=== PATIENT | male | born 1985 | race Caucasian/White ===

== ENCOUNTER 2018-07-24 10:16 | Emergency (ER) | payer BC, OTHER ==
[2018-07-24 10:53] VITALS: BP 130/87
--- NOTE | 2018-07-24 12:15 | ED Physician Documentation ---
PD HPI BACK PAIN - Stated complaint Stated Complaint: BACK PX - Chief complaint Chief Complaint: Back Pain - History obtained from History obtained from: Patient - History of Present Illness Timing - onset: How many days ago (couple) Timing - duration: Days Timing - details: Abrupt onset, Still present Location: Upper, Left (pain around shoulder girdle and trapezius area.) Quality: Pain, Spasm Associated symptoms: No: Fever, Weakness, Numbness Worsened by: Movement, Lifting Contributing factors: Lifting. No: Trauma Similar symptoms before: Has not had sx before Recently seen: Not recently seen Review of Systems Constitutional: denies: Fever, Chills, Myalgias Skin: denies: Rash, Lesions Neurologic: denies: Focal weakness, Numbness PD PAST MEDICAL HISTORY - Past Medical History Cardiovascular: None Respiratory: None Musculoskeletal: None - Present Medications Home Medications: Ambulatory Orders Medication Instructions Recorded Confirmed Hydrocodone/Acetaminophen [[place] 1 each PO Q6H PRN #20 tablet 07/24/18 5-325 Tablet] Methocarbamol [Robaxin] 500 mg PO Q6H PRN #30 tablet 07/24/18 - Allergies Allergies/Adverse Reactions: Allergies Allergy/AdvReac Type Severity Reaction Status Date / Time No Known Drug Allergies Allergy Verified 07/24/18 10:37 PD ED PE NORMAL - Vitals Vital signs reviewed: Yes - General General: Alert and oriented X 3, No acute distress, Well developed/nourished - Neck Neck: No bony TTP, Other (tender in left trapezius muscle side of neck to scapular area and posterior shoulder. No rash nor sores. ) - Neuro Neuro: No motor deficit, No sensory deficit Results - Vitals Vitals: Oxygen O2 Source Room air PD MEDICAL DECISION MAKING - ED course Complexity details: considered differential, d/w patient Departure - Departure Disposition: Home, Self Care Clinical Impression: Trapezius muscle strain Qualifiers: Encounter type: initial encounter Laterality: left Qualified Code(s): S46.812A - Strain of other muscles, fascia and tendons at shoulder and upper arm level, left arm, initial encounter Condition: Stable Record reviewed to determine appropriate education?: Yes Instructions: ED Spasm Back No Trauma Follow-Up: DORI MALONE [Primary Care Provider] - Prescriptions: Hydrocodone/Acetaminophen [[place] 5-325 Tablet] 1 each PO Q6H PRN #20 tablet PRN Reason: Pain Methocarbamol [Robaxin] 500 mg PO Q6H PRN #30 tablet PRN Reason: Spasms Comments: Ibuprofen 3 times daily. Robaxin for spasms. [place] for pain. Sling and no use left arm for few days. Follow up PMD in 2 days. Forms: Activity restrictions Discharge Date/Time: 07/24/18 13:32
[2018-07-24] MEDS ORDERED: diazePAM 5 MG TABLET PO STA (12:42)
[2018-07-24] MEDS ORDERED: HYDROmorphone 1 MG/ML CARPUJECT IM STA (12:42)
== END 2018-07-24 13:32 | disposition home or self-care (01) ==
LOC: ED 10:16
DX: S46.812A Strain of other muscles, fascia and tendons at shoulder and upper arm level, left arm, initial encounter (principal); X58.XXXA Exposure to other specified factors, initial encounter; M54.6 Pain in thoracic spine
CPT/HCPCS: 96372; 99283; A9270; J1170

== ENCOUNTER 2020-07-02 13:01 | Outpatient (CLI) | payer OTHER ==
--- NOTE | 2020-07-02 15:46 | MRI Report ---
PROCEDURE: Cervical Spine W/O INDICATIONS: CERVICALGIA TECHNIQUE: Noncontrast sagittal T1 spin echo and T2 fast spin echo, sagittal STIR, foraminal oblique sagittal T2 fast spin echo, and axial gradient echo or T2 fast spin echo through the cervical spine. COMPARISON: None. FINDINGS: Image quality: Excellent. Alignment and Curvature: There is normal bony alignment. Bone Marrow: Marrow demonstrates normal overall signal. Spinal Cord: Visualized spinal cord has normal size and signal. No cerebellar tonsillar herniation. Paraspinous Soft Tissues: No paravertebral masses. Prevertebral soft tissues are normal in thicknes s. C2-C3: Normal in appearance. C3-C4: No canal stenosis. Mild right foraminal narrowing with borderline nerve root compression. Mo derate left foraminal stenosis. C4-C5: No canal stenosis. No right foraminal narrowing. Mild left foraminal stenosis. C5-C6: There is left paracentral disc osteophyte complex and uncovertebral arthropathy. Mild to mode rate left-sided canal narrowing. Partial left-sided effacement of the thecal sac. Mild right and sharon re left foraminal stenosis with nerve root compression C6-C7: No definite canal stenosis. Mild right foraminal narrowing. Minimal left foraminal stenosis. C7-T1: Normal in appearance. IMPRESSION: Mild to moderate left-sided C5-C6 canal narrowing. Severe left C5-C6 foraminal stenosis. Reviewed by: Sam Swartz MD on 07/02/2020 3:45 PM PDT Approved by: Sam Swartz MD on 07/02/2020 3:45 PM PDT Station ID: [id number]
== END 2020-07-02 13:02 | disposition home or self-care (01) ==
LOC: DI 13:01
PROVIDERS: ATTEND Family Medicine
DX: M54.2 Cervicalgia (principal); M48.02 Spinal stenosis, cervical region

== ENCOUNTER 2020-09-04 01:17 | Outpatient (CLI) | payer OTHER | END 2020-09-04 01:18 | disposition critical access hospital (66) | LOC: EMS 01:17 | DX: R25.1 Tremor, unspecified (principal); R68.83 Chills (without fever); R11.0 Nausea | CPT/HCPCS: A0425; A0429 ==

== ENCOUNTER 2020-09-04 01:39 | Emergency (ER) | payer OTHER ==
[2020-09-04] MEDS ORDERED: ACETAMINOPHEN 325 MG TABLET PO STA (01:48)
[2020-09-04] MEDS ORDERED: ONDANSETRON ODT 4 MG TABLET TL STA (01:48)
--- NOTE | 2020-09-04 01:51 | ED Physician Documentation ---
History of Present Illness - Stated complaint Stated Complaint: SHAKING S/P COVID SHOT - Chief complaint Chief Complaint: Abd Pain - History obtained from History obtained from: Patient - Additonal information Additional information: 34-year-old man with past medical history of gastroesophageal reflux disease, SVT without need for prior electrocardioversion, chronic back pain, presents with shaking, chills, nausea as well as lightheadedness status post Covid vaccine yesterday. Patient woke in the middle of the night with the symptoms and took his blood pressure. He was initially was able to get a systolic blood pressure in the 140s but then try to retake it again and was not able to get it so he called 911. On route patient states that he spit up multiple times, which is not unusual for him with his GERD, however usually occurs after eating. He endorses intermittent chest tightness and palpitations. Note per ems report patient has never actually been diagnosed with SVT. He has history of anxiety and palpitations and has been in tachycardic sinus rhythm in the past. Review of Systems Constitutional: reports: Chills, Myalgias, Fatigue Cardiac: reports: Palpitations Respiratory: denies: Dyspnea, Cough GI: reports: Nausea, Vomiting. denies: Abdominal Pain Neurologic: reports: Generalized weakness, Other (dizziness) PD PAST MEDICAL HISTORY - Past Medical History Cardiovascular: None Respiratory: None Musculoskeletal: None - Present Medications Home Medications: Ambulatory Orders Medication Instructions Recorded Confirmed Hydrocodone/Acetaminophen [[place] 1 each PO Q6H PRN #20 tablet 07/24/18 5-325 Tablet] methocarbamoL [Robaxin] 500 mg PO Q6H PRN #30 tablet 07/24/18 Ondansetron Odt [Zofran] 4 mg TL Q6H PRN #10 tablet 09/04/20 - Allergies Allergies/Adverse Reactions: Allergies Allergy/AdvReac Type Severity Reaction Status Date / Time No Known Drug Allergies Allergy Verified 09/04/20 01:44 PD ED PE NORMAL - Vitals Vital signs reviewed: Yes - General General: Alert and oriented X 3, No acute distress, Well developed/nourished - HEENT HEENT: Atraumatic, PERRL, EOMI - Neck Neck: Supple, no meningeal sign - Cardiac Cardiac: Other (Borderline tachycardic rate, regular rhythm) - Respiratory Respiratory: No respiratory distress, Clear bilaterally - Abdomen Abdomen: Non tender, Non distended - Derm Derm: Normal color, Warm and dry - Extremities Extremities: No deformity - Neuro Neuro: Alert and oriented X 3, seam finisher 2-12 intact, No motor deficit, No sensory deficit, Normal speech - Psych Psych: Normal mood, Normal affect Results - Vitals Vitals: Vital Signs - 24 hr 09/04/20 09/04/20 01:44 01:48 Temperature 37.3 C 37.3 C Heart Rate 109 H 109 H Respiratory 16 16 Rate Blood Pressure 126/78 126/78 O2 Saturation 100 100 Oxygen O2 Source Room air - EKG (time done) 0159 Rate: Rate (enter#) (103) Rhythm: Sinus tachycardia PD MEDICAL DECISION MAKING - ED course ED course: Patient with multiple symptoms s/p covid vaccine. well appearing on exam with mild tachycardia. reassurance given after normal ekg. return precautions given. symptom management discussed. Departure - Departure Disposition: 01 Home, Self Care Clinical Impression: Palpitations, Nausea, Shaking, Lightheadedness Condition: Good Instructions: ED Nausea Vomiting Prescriptions: Ondansetron Odt [Zofran] 4 mg TL Q6H PRN #10 tablet PRN Reason: Nausea / Vomiting Comments: You were seen in the emergency department for multiple symptoms. Your vital signs, physical exam, EKG were normal. Please follow-up with your primary doctor. Return to the emergency department if you have any new or worsening symptoms or other concerns. Forms: Activity restrictions
[2020-09-04 02:49] VITALS: BP 122/72
== END 2020-09-04 03:04 | disposition home or self-care (01) ==
LOC: EDSEX → EDUNIT# → ED 01:39
DX: R00.2 Palpitations (principal); R07.89 Other chest pain
CPT/HCPCS: 93005; 99283; A9270; Q0162